=== PATIENT | male | born 1975 | race Caucasian/White ===

== ENCOUNTER 2018-02-19 15:59 | Emergency (ER) | payer OTHER, SELFPAY ==
[2018-02-19 16:20] VITALS: BP 114/79; PULSE 82; RESP 18; TEMP 37.1; O2SAT 100; BMI 28.5
--- NOTE | 2018-02-19 16:24 | DI.RAD.S_ITS ---
PROCEDURE: XR FOOT RT MIN 3V INDICATIONS: stepped wrong, heard pop, protrusion rt side of foot TECHNIQUE: 3 views of the foot were acquired. COMPARISON: None. FINDINGS: Bones: There is a minimally displaced transverse fracture at the base of the fifth metatarsal. Fracture line extends to the margin of the articular surface. Soft tissues: No tibiotalar joint effusion. Achilles tendon appears normal. IMPRESSION: Minimally displaced fifth metatarsal base fracture, with lucency extending to the articular surface. Dictated by: Delmi Segura M.D. on 02/19/2018 at 16:49 Approved by: Delmi Segura M.D. on 02/19/2018 at 16:50
--- NOTE | 2018-02-19 18:16 | ED.LOWEXIN ---
HPI - Extremity Injury (Lower) <DAIJA Rodriguez - Last Filed: 02/19/18 23:08> General Chief Complaint: Extremity Injury, Lower Stated Complaint: RIGHT FOOT INJURY Time Seen by Provider: 02/19/18 18:16 Source: patient Mode of arrival: wheelchair Limitations: no limitations History of Present Illness HPI Narrative: 42-year-old healthy male that is a nonsmoker here for complaint of pain into his right lateral foot. He was playing volleyball earlier today and when he went up to a block of the ball he came down landing on the wall with his lateral right foot. He felt a pop in the lateral right foot and then pain into that area. He reports increased pain with ambulation and weight-bearing. He denies any other injuries or complaints at this timeframe. He reports decreased pain with resting. MD complaint: foot injury Related Data Home Medications Medication Instructions Recorded Confirmed ascorbic acid (vitamin C) 250 mg PO QDAY #0 09/12/16 bisacodyl [Fleet Laxative] 5 mg PO PRN PRN #0 09/12/16 cholecalciferol (vitamin D3) 2,000 iu PO QDAY #0 09/12/16 [Vitamin D3] gabapentin 100 mg PO TID #0 09/22/16 Previous Rx's Medication Instructions Recorded diazepam [Valium] 5 mg PO BID #60 tab 09/23/16 hydrocodone-acetaminophen [[place]] 1 tab PO Q4HP PRN #60 tab 09/23/16 naproxen [Naprosyn] 500 mg PO BID #90 tab 09/23/16 hydrocodone-acetaminophen [[place]] 1 tab PO Q4-6H PRN #10 tab 02/19/18 Allergies Allergy/AdvReac Type Severity Reaction Status Date / Time No Known Allergies Allergy Uncoded 02/19/18 16:23 Review of Systems <DAIJA Rodriguez - Last Filed: 02/19/18 23:08> Constitutional Denies chills, Denies fever(s), Denies lethargy and Denies weakness Eyes Denies change in vision, Denies eye discharge, Denies irritation and Denies loss of vision ENT Ears, Nose, Mouth, and Throat: Denies change in voice, Denies neck pain and Denies sore throat Cardiovascular Denies chest pain, Denies irregular heart rhythm, Denies lightheadedness, Denies palpitations, Denies dyspnea, Denies dyspnea on exertion and Denies orthopnea Respiratory Denies cough, Denies dyspnea, Denies dyspnea on exertion and Denies wheezing Gastrointestinal Gastrointestinal: Denies abdominal pain, Denies change in bowel habits, Denies diarrhea, Denies nausea and Denies vomiting Genitourinary Denies hematuria, Denies flank pain, Denies urinary incontinence and Denies urinary urgency Musculoskeletal Denies neck pain Comments: right foot pain Integumentary/Breasts Denies pruritus, Denies erythema, Denies rash and Denies wounds Neurologic Denies confusion, Denies loss of vision and Denies weakness Psychiatric Denies anxiety, Denies confusion, Denies depression, Denies homicidal ideation and Denies suicidal ideation Endocrine Denies palpitations Hematologic/Lymphatic Denies easy bruising Allergic/Immunologic Denies wheezing Exam <DAIJA Rodriguez - Last Filed: 02/19/18 23:08> Initial Vital Signs Initial Vital Signs: Vital Signs Temperature 98.7 F 02/19/18 16:20 Pulse Rate 82 02/19/18 16:20 Respiratory Rate 18 02/19/18 16:20 Blood Pressure 114/79 02/19/18 16:20 Pulse Oximetry 100 02/19/18 16:20 Const General: cooperative and well developed Nutritional Appearance: well nourished Orientation: alert, awake, oriented x3 and not confused [facility] Mouth: oral mucosae normal and moist mucous membranes Eyes Conjunctivae: conjunctivae normal Sclera: sclerae normal Pupils: PERRL EOM: EOM intact bilaterally Resp Effort & Inspection: normal respiratory effort, able to speak in complete sentences, no respiratory distress and no use of accessory muscles Auscultation: clear to auscultation bilaterally, no rales, no rhonchi and no wheezes Cardio Rate: regular rate Rhythm: regular rhythm Heart Sounds: no click, no gallops, no murmurs and no rubs Pulses: normal peripheral pulses Skin General: no rashes or lesions noted, No jaundice and No petechiae Neuro General: alert, oriented x3, gait normal and no focal motor deficits Speech: speech normal Extrem Other: slight swelling and ecchymosis to the right lateral foot. No open lesions. Distal sensation is intact. Distal range of motion is intact. Distal pulses are intact. <Yaa Ortiz DO - Last Filed: 02/20/18 18:37> Initial Vital Signs Initial Vital Signs: Vital Signs Temperature 98.7 F 02/19/18 16:20 Pulse Rate 82 02/19/18 16:20 Respiratory Rate 18 02/19/18 16:20 Blood Pressure 114/79 02/19/18 16:20 Pulse Oximetry 100 02/19/18 16:20 Procedures <DAIJA Rodriguez - Last Filed: 02/19/18 23:08> Orthopedic Splinting/Casting Injury #1: Side: right Lower Extremity Injury Location: foot Lower Extremity Immobilizer: posterior splint Other Orthopedic Equipment: crutches Additional Comments: Distal CMS is intact after application of a right posterior splint Course <DAIJA Rodriguez - Last Filed: 02/19/18 23:08> Orders Ordered: Discontinued Medications Ibuprofen (Advil) 800 mg PO NOW ONE Stop: 02/19/18 18:38 Last Admin: 02/19/18 19:17 Dose: 800 mg Vital Signs - 8 hr 02/19/18 16:20 Temperature 98.7 F Pulse Rate 82 Respiratory Rate 18 Blood Pressure 114/79 Pulse Oximetry 100 <Yaa Ortiz DO - Last Filed: 02/20/18 18:37> Orders Ordered: Discontinued Medications Ibuprofen (Advil) 800 mg PO NOW ONE Stop: 02/19/18 18:38 Last Admin: 02/19/18 19:17 Dose: 800 mg Vital Signs - 8 hr 02/19/18 16:20 Temperature 98.7 F Pulse Rate 82 Respiratory Rate 18 Blood Pressure 114/79 Pulse Oximetry 100 MDM - Extremity Injury (Lower) <DAIJA Rodriguez - Last Filed: 02/19/18 23:08> Imaging Data R foot: Radiologist's impression: [address] [address] XRay Report Signed Patient: Ibeth Hui#: [id number] : 1975Acct:[id number] Age/Sex: 42 / MDate of Service: 02/19/18 Loc: ED Accession Number: [id number] Procedure: XR foot RT min 3V Ordering Provider: Zach Noriega D.O. PROCEDURE: XR FOOT RT MIN 3V INDICATIONS: stepped wrong, heard pop, protrusion rt side of foot TECHNIQUE: 3 views of the foot were acquired. COMPARISON: None. FINDINGS: Bones: There is a minimally displaced transverse fracture at the base of the fifth metatarsal. Fracture line extends to the margin of the articular surface. Soft tissues: No tibiotalar joint effusion. Achilles tendon appears normal. IMPRESSION: Minimally displaced fifth metatarsal base fracture, with lucency extending to the articular surface. Dictated by: Delmi Segura M.D. on 02/19/2018 at 16:49 Approved by: Delmi Segura M.D. on 02/19/2018 at 16:50 [facility] Narrative Medical decision making narrative: X-ray the right ft shows a minimally displaced 5th metatarsal base fracture. He is placed in a posterior splint for comfort and support. He is given crutches for nonweightbearing. Follow up with primary care provider [place] use [id number] Tylenol or Motrin as needed for any discomfort. Ice and elevation help with any swelling. Small amount of [place] was provided for breakthrough pain. For any worsening symptoms return emergency room. Discharge Plan Departure Patient Disposition: Home Clinical Impression: Foot fracture, right Discharge Date/Time: 02/19/18 19:59 Interventions: ED Discharge Assessment Last Done: 02/19/18 19:58 Instructions: DI for Foot Fracture Activity Restrictions/Additional Instructions: x-ray of the right foot shows a fracture at the base of the right 5th metatarsal. you have been placed in a splint for comfort and support use as directed. Use crutches for nonweightbearing. Follow up with primary care provider in Orthopedics in the next few days. Use [id number] Tylenol or Motrin and he needed for any discomfort. Ice and elevation help with any swelling. For any worsening symptoms return to the emergency room. Small amount of [place] is prescribed for breakthrough pain not covered by the Tylenol or Motrin use as directed no driving while on the [place]. Prescriptions: New hydrocodone-acetaminophen [[place]] 5-325 mg tablet 1 tab PO Q4-6H PRN (Reason: pain) Qty: 10 RF: 0 No Action cholecalciferol (vitamin D3) [Vitamin D3] 2,000 UNIT capsule 2,000 iu PO QDAY Qty: 0 RF: 0 ascorbic acid (vitamin C) 500 MG tablet 250 mg PO QDAY Qty: 0 RF: 0 bisacodyl [Fleet Laxative] 5 MG tablet,delayed release (DR/EC) 5 mg PO PRN PRNQty: 0 RF: 0 gabapentin 100 MG capsule 100 mg PO TID Qty: 0 RF: 0 hydrocodone-acetaminophen [[place]] 5 MG/325 MG tablet 1 tab PO Q4HP PRNQty: 60 RF: 0 naproxen [Naprosyn] 500 MG tablet 500 mg PO BID Qty: 90 RF: 0 diazepam [Valium] 5 MG tablet 5 mg PO BID Qty: 60 RF: 0 Referrals: [facility] [Provider Group] Abena Franco MD [Physician] - Stand Alone Forms: Work/School Restrictions <Yaa Ortiz DO - Last Filed: 02/20/18 18:37> Cosign ED Attending Suly Attestation: I was immediately available in the department for consultation. Documentation has been reviewed. I agree with assessment and plan.
[2018-02-19] MEDS: IBUPROFEN 400 MG TABLET 800 MG PO (19:17)
== END 2018-02-19 19:59 | disposition home or self-care (01) ==
PROVIDERS: Emergency Provider Nurse Practitioner Family
DX: S92.901A Unspecified fracture of right foot, initial encounter for closed fracture (principal); Y93.68 Activity, volleyball (beach) (court)
CPT/HCPCS: 29515; 73630; 99282; 99283

== ENCOUNTER 2018-04-07 13:58 | Emergency (ER) | payer OTHER, SELFPAY ==
[2018-04-07 14:03] VITALS: BP 130/69; PULSE 73; RESP 18; TEMP 36.4; O2SAT 99
--- NOTE | 2018-04-07 14:32 | ED_ITS ---
HPI - Skin/Abscess/Foreign Bdy <DAIJA Rodriguez - Last Filed: 04/07/18 22:27> General Chief complaint: Skin/Abscess/Foreign Body Stated complaint: STATES FULL UPPER BODY RASH Time Seen by Provider: 04/07/18 14:18 Source: patient Mode of arrival: ambulatory Limitations: no limitations History of Present Illness HPI narrative: 42-year-old healthy male that is a former smoker here for complaint of rash to his upper torso and extremities that started earlier today. He denies any edge. Denies any fevers or chills. he does state that the who was in an antibiotic last week due to folliculitis that he stop taking 2 days ago, although he does not know the name of. He denies any shortness of breath. No swelling in the throat or the mouth. positive p.o. intake. he states that he did use a shower tar heat exchanger cleaner this morning although he states that he did not get any on him. He denies any other known triggers. he denies any other concerns or complaints MD complaint: rash Related Data Home Medications Medication Instructions Recorded Confirmed ascorbic acid (vitamin C) 250 mg PO QDAY #0 09/12/16 bisacodyl [Fleet Laxative] 5 mg PO PRN PRN #0 09/12/16 cholecalciferol (vitamin D3) 2,000 iu PO QDAY #0 09/12/16 [Vitamin D3] gabapentin 100 mg PO TID #0 09/22/16 Previous Rx's Medication Instructions Recorded diazepam [Valium] 5 mg PO BID #60 tab 09/23/16 hydrocodone-acetaminophen [[place]] 1 tab PO Q4HP PRN #60 tab 09/23/16 naproxen [Naprosyn] 500 mg PO BID #90 tab 09/23/16 hydrocodone-acetaminophen [[place]] 1 tab PO Q4-6H PRN #10 tab 02/19/18 cetirizine [Zyrtec] 10 mg PO DAILY #7 tab 04/07/18 prednisone 20 mg PO DAILY #3 tab 04/07/18 Allergies Allergy/AdvReac Type Severity Reaction Status Date / Time No Known Allergies Allergy Uncoded 02/19/18 16:23 Review of Systems <DAIJA Rodriguez - Last Filed: 04/07/18 22:27> Constitutional Denies chills, Denies fever(s), Denies lethargy and Denies weakness Eyes Denies change in vision, Denies eye discharge, Denies irritation and Denies loss of vision ENT Ears, Nose, Mouth, and Throat: Denies change in voice, Denies neck pain and Denies sore throat Cardiovascular Denies chest pain, Denies irregular heart rhythm, Denies lightheadedness, Denies palpitations, Denies dyspnea, Denies dyspnea on exertion and Denies orthopnea Respiratory Denies cough, Denies dyspnea, Denies dyspnea on exertion and Denies wheezing Gastrointestinal Gastrointestinal: Denies abdominal pain, Denies change in bowel habits, Denies diarrhea, Denies nausea and Denies vomiting Genitourinary Denies hematuria, Denies flank pain, Denies urinary incontinence and Denies urinary urgency Musculoskeletal Denies neck pain Integumentary/Breasts Comments: rash to torso Neurologic Denies confusion, Denies loss of vision and Denies weakness Psychiatric Denies anxiety, Denies confusion, Denies depression, Denies homicidal ideation and Denies suicidal ideation Endocrine Denies palpitations Hematologic/Lymphatic Denies easy bruising Allergic/Immunologic Denies wheezing Exam <DAIJA Rodriguez - Last Filed: 04/07/18 22:27> Initial Vital Signs Initial Vital Signs: Vital Signs Temperature 97.6 F 04/07/18 14:03 Pulse Rate 73 04/07/18 14:03 Respiratory Rate 18 04/07/18 14:03 Blood Pressure 130/69 04/07/18 14:03 Pulse Oximetry 99 04/07/18 14:03 Const General: cooperative and well developed Nutritional Appearance: well nourished Orientation: alert, awake, oriented x3 and not confused [facility] Mouth: oral mucosae normal, oropharynx normal and moist mucous membranes Eyes Conjunctivae: conjunctivae normal Sclera: sclerae normal Pupils: PERRL EOM: EOM intact bilaterally Resp Effort & Inspection: normal respiratory effort, able to speak in complete sentences, no respiratory distress and no use of accessory muscles Auscultation: clear to auscultation bilaterally, no rales, no rhonchi and no wheezes Cardio Rate: regular rate Rhythm: regular rhythm Heart Sounds: no click, no gallops, no murmurs and no rubs Skin Rashes: rashes noted ( morbilliform rash to anterior posterior thorax and upper extremities. ) Neuro General: alert, oriented x3, gait normal and no focal motor deficits Speech: speech normal <Yaa Ortiz DO - Last Filed: 04/08/18 08:20> Initial Vital Signs Initial Vital Signs: Vital Signs Temperature 97.6 F 04/07/18 14:03 Pulse Rate 73 04/07/18 14:03 Respiratory Rate 18 04/07/18 14:03 Blood Pressure 130/69 04/07/18 14:03 Pulse Oximetry 99 04/07/18 14:03 Course <DAIJA Rodriguez - Last Filed: 04/07/18 22:27> Vital Signs - 8 hr 04/07/18 15:41 Pulse Rate 72 Blood Pressure 119/85 Pulse Oximetry 99 <Yaa Ortiz DO - Last Filed: 04/08/18 08:20> Vital Signs - 8 hr 04/07/18 15:41 Pulse Rate 72 Blood Pressure 119/85 Pulse Oximetry 99 MDM - Skin/Abscess/Foreign Bdy <DAIJA Rodriguez - Last Filed: 04/07/18 22:27> MDM Narrative Medical decision making narrative: sinus symptoms presents as mobile form rash to his torso. Suspect recent antibiotic use as the cause. Differential as a viral cause. Will treat with antihistamine Zyrtec. along with a short course of steroids. follow up with primary care for the next few days for re- evaluation. For any worsening symptoms return to the emergency room. Discharge Plan Departure Patient Disposition: Home Clinical Impression: Rash in adult Discharge Date/Time: 04/07/18 15:42 Interventions: ED Discharge Assessment Last Done: 04/07/18 15:41 Instructions: DI for Rash Activity Restrictions/Additional Instructions: signs and symptoms presents as a morbilliform rash and suspect is secondary to recent antibiotic use. Differential diagnosis is due to a viral cause. Use Zyrtec as needed For antihistamine and short course of prednisone over the next 3 days to help with the rash. Follow up with her primary care provider next week for re-evaluation. For any worsening symptoms return to the emergency room. Prescriptions: New cetirizine [Zyrtec] 10 mg tablet 10 mg PO DAILY Qty: 7 RF: 0 prednisone 20 mg tablet 20 mg PO DAILY Qty: 3 RF: 0 No Action cholecalciferol (vitamin D3) [Vitamin D3] 2,000 UNIT capsule 2,000 iu PO QDAY Qty: 0 RF: 0 ascorbic acid (vitamin C) 500 MG tablet 250 mg PO QDAY Qty: 0 RF: 0 bisacodyl [Fleet Laxative] 5 MG tablet,delayed release (DR/EC) 5 mg PO PRN PRNQty: 0 RF: 0 gabapentin 100 MG capsule 100 mg PO TID Qty: 0 RF: 0 hydrocodone-acetaminophen [[place]] 5 MG/325 MG tablet 1 tab PO Q4HP PRNQty: 60 RF: 0 naproxen [Naprosyn] 500 MG tablet 500 mg PO BID Qty: 90 RF: 0 diazepam [Valium] 5 MG tablet 5 mg PO BID Qty: 60 RF: 0 hydrocodone-acetaminophen [[place]] 5-325 mg tablet 1 tab PO Q4-6H PRN (Reason: pain) Qty: 10 RF: 0 Referrals: [facility] [Provider Group] <Yaa Ortiz DO - Last Filed: 04/08/18 08:20> Cosign ED Attending Albertoature Attestation: I was immediately available in the department for consultation. Documentation has been reviewed. I agree with assessment and plan.
[2018-04-07 15:41] VITALS: BP 119/85; PULSE 72; O2SAT 99
== END 2018-04-07 15:42 | disposition home or self-care (01) ==
PROVIDERS: Emergency Provider Nurse Practitioner Family
DX: R21 Rash and other nonspecific skin eruption (principal)
CPT/HCPCS: 99282

== ENCOUNTER → 2019-07-24 07:50 | Outpatient (CLI) | payer OTHER, SELFPAY ==
--- NOTE | 2019-07-24 | DI.ECHO.S_ITS ---
[facility] +---------+ : : [address] : [place] : : : : [id number] : : : : Phone: [phone]+ Echocardiogram Report + + :Name: MARILUZ MARIN Study Date: 07/24/2019 Height: 69 in : :[employer] Weight: 190 lb : : Gender: Male BSA: 2.0 m2 : :: 1975 Age: 43 yrs BP: 142/90 mmHg: :Reason For Study: HEART PALPATATIONS : : Performed By: Audrey Gordon : :Referring: TOIN VERMA : + + Interpretation Summary The left ventricle is normal in size and wall thickness. The left ventricular ejection fraction is normal. Diastolic parameters suggest probable normal left ventricular diastolic function and normal filling pressures. The right ventricle is normal in size and function. Pulmonary artery pressures cannot be estimated because of the lack of a measurable TR jet velocity. No hemodynamically significant valvular abnormalities. -No structural abnormalities noted on this echo. Procedure: A two-dimensional transthoracic echocardiogram with color flow and Doppler was performed. The study quality was technically adequate. There is no prior echocardiogram noted for this patient. The patient was in normal sinus rhythm during the exam. Left Ventricle: The left ventricle is normal in size and wall thickness. The ejection fraction is estimated to be 60-65%. The left ventricular ejection fraction is normal. There are regional wall motion abnormalities as specified. Diastolic parameters suggest probable normal left ventricular diastolic function and normal filling pressures. Right Ventricle: The right ventricle is normal in size and function. Atria: Both atria are normal in size. There is no Doppler evidence for an interatrial shunt. Mitral Valve: The mitral valve is normal in structure and function. There is no mitral regurgitation noted. Aortic Valve: The aortic valve is trileaflet. The aortic valve opens well. There is no aortic valve stenosis. No aortic regurgitation is present. Tricuspid Valve: The tricuspid valve is normal in structure and function. There is trace tricuspid regurgitation. Pulmonary artery pressures cannot be estimated because of the lack of a measurable TR jet velocity. Pulmonic Valve: The pulmonic valve is not well seen, but is grossly normal. There is no pulmonic valvular regurgitation. Great Vessels: The aortic root is normal size. The ascending aorta is mildly enlarged. The IVC is of normal diameter and collapses greater than 50% with a sniff. This suggests a low right atrial pressure of 3 mm Hg. Pericardium/ Pleura There is no pericardial effusion. There is no pleural effusion. MMode/2D Measurements & Calculations LVIDd: 5.1 cm LVOT diam: 2.2 cm LVIDs: 3.3 cm Ao root diam: 2.8 cm FS: 35.4 % asc Aorta Diam: 3.6 cm EPSS: 0.37 cm IVSd: 0.63 cm LVPWd: 0.93 cm LV machado. diameter/BSA (cm/m^2): 2.5 LV sys. diameter/BSA (cm/m^2): 1.6 LA A2 area: 19.7 cm2 RA long axis: 4.8 cm LA A4 area: 15.1 cm2 RA area: 12.5 cm2 LA length (vol): 5.5 cm RA vol: 27.5 ml LA vol: 45.3 ml RA : 13.6 ml/m2 LA vol index: 22.4 ml/m2 IVC diam: 1.4 cm RVD1 (basal): 3.1 cm Doppler Measurements & Calculations Ao V2 max: 175.0 cm/sec LVOT Max Piter: 128.4 cm/sec Ao V2 mean: 104.7 cm/sec LV V1 max P.6 mmHg Ao max P.2 mmHg LV V1 VTI: 25.1 cm Ao mean P.4 mmHg DELMI(I,D): 3.5 cm2 Ao V2 VTI: 27.5 cm DELMI(V,D): 2.9 cm2 sev ratio: 0.91 DELMI indexed to BSA (cm^2/m^2): 1.8 MV E max piter: 78.7 cm/sec PA V2 max: 113.9 cm/sec MV A max piter: 73.8 cm/sec PA V2 mean: 83.9 cm/sec MV E/A: 1.1 PA mean P.1 mmHg Med Peak E' Piter: 17.0 cm/sec PA pr(Accel): 35.4 mmHg E/E' med: 4.6 Lat Peak E' Piter: 18.0 cm/sec E/E' lat: 4.4 E/e' average: 4.5 MV dec time: 0.24 sec MV P1/2t: 71.3 msec MV P1/2t max piter: 78.2 cm/sec SV(LVOT): 97.7 ml MVA(P1/2t): 3.1 cm2 Electronically signed by: Mauro Manning M.D. on Reading Physician:07/24/2019 12:02 PM
== END ==
PROVIDERS: PCP Preventive Medicine Public Health & General Preventive Medicine; Referring Provider Physician Assistant; Visit Provider Physician Assistant
DX: R00.2 Palpitations (principal); I77.89 Other specified disorders of arteries and arterioles
CPT/HCPCS: 93306